=== PATIENT | female | born 1935 | race Hispanic/Latino ===

== ENCOUNTER 2021-06-27 14:40 | Emergency (ER) | payer OTHER ==
[~2021-06-27] VITALS: Ht 160 cm; Wt 65.0 kg
[~2021-06-27 14:40] MED LIST: LEVAQUIN250 MG PO; LEVAQUIN500 MG PO; LISINOP/HCTZ1 TA2 PO; NAPROSYN250 MG PO; PERCOCET 5/325M1 TAB PO; TOPROL XL25 MG PO
[2021-06-27 17:33] LABS: HEMATOCRIT 38.9 % (37.0-47.0); HEMOGLOBIN 12.7 g/dl (12.0-16.0); IMMATURE GRANULOCYTES 0.1 % (0.0-5.0); MEAN CELL VOLUME 95.1 fL CALC (80.0-100.0); MEAN CORPUSCULAR HGB 31.1 pG CALC (26.0-32.0); MEAN CORPUSCULAR HGB CONC 32.6 g/dL CAL (32.0-36.0); RED BLOOD COUNT 4.09 mill/uL (4.20-5.60)
[2021-06-27 17:48] LABS: ALBUMIN 4.5 g/dL (3.2-5.0); POTASSIUM 3.7 mmol/l (3.5-5.1)
[2021-06-27 17:49] LABS: BILIRUBIN, TOTAL 1.1 mg/dL (0.0-1.4); CREATININE 2.3 mg/dL (0.5-1.0)
[2021-06-27 20:10] VITALS: BP 168/70
== END 2021-06-27 20:10 | disposition short-term general hospital (02) ==
LOC: ED 14:40
PROVIDERS: Family Medicine
DX: S72.101A Unspecified trochanteric fracture of right femur, initial encounter for closed fracture (principal); I10 Essential (primary) hypertension; X58.XXXA Exposure to other specified factors, initial encounter; Z20.822 Contact with and (suspected) exposure to COVID-19